=== PATIENT | male | born 1990 | race Caucasian/White ===

== ENCOUNTER → 2024-10-27 16:20 | Outpatient (REF) | payer OTHER, SELFPAY | LOC: HWRAD 16:20 | PROVIDERS: ATTENDING PHYSICIAN Physician Assistant Medical | DX: M25.521 Pain in right elbow (principal) | CPT/HCPCS: 73080 ==

== ENCOUNTER 2025-02-20 20:01 | Emergency (ER) | payer OTHER, SELFPAY ==
[2025-02-20 20:12] VITALS: BP 146/80
[2025-02-20 21:19] VITALS: BP 132/64
--- NOTE | 2025-02-20 21:44 | EDRN ---
Pt says he had hives last night and they went away. Pt was out to dinner around 1930 and noticed a few hives which caused him to have 'bad anxiety'. Pt says this has happened 7-8 times where he has a panic attack then passes out. Pt was sitting,
felt he was going to pass out so he tried to make it to the car. Pt was diaphoretic and lightheaded. says she pushed him up against a wall so he did not fall when he passed out. LOC x 1 minute. Pt feels tired now. No lightheadedness, cp,
abd pain, n/v. Pt used to have an epi pen due to hx of anaphylaxis but does not have one anymore.
[2025-02-20 21:48] LABS: % Basophils 0.9 % (0-2); % Eosinophils 3.7 % (0-6); % Immature Granulocytes 0.2 % (0-0.5); % Lymphocytes 29.1 % (20.5-51.1); % Monocytes 9.6 % (1.7-9.3); % Neutrophils 56.5 % (42.2-75.2); Absolute Basophils 0.1 10^3/uL (0-0.2); Absolute Eosinophils 0.3 10^3/uL (0-0.7); Absolute Lymphocytes 2.5 10^3/uL (1.2-3.4); Absolute Monocytes 0.8 10^3/uL (0.1-0.6); Absolute Neutrophils 4.8 10^3/uL (1.4-6.5); Hemoglobin 14.4 g/dL (13.0-18.0); Mean Corp Hgb Conc. 35.1 g/dL (33.0-37.0); Mean Corpuscular Hgb 29.6 pg (27.0-31.0); Mean Corpuscular Volume 84.2 fL (80.0-94.0); Mean Platelet Volume 8.2 fL (7.4-10.4); Nucleated Red Blood Cells % 0 % (-); Platelet Count 256 10^3/uL (130-400); Red Blood Cell Count 4.87 10^6/uL (4.70-6.10); Red Cell Dist. Width 12.5 % (11.5-14.5); White Blood Cell Count 8.5 10^3/uL (4.8-10.8)
[2025-02-20 22:00] VITALS: BP 106/56
[2025-02-20 22:17] LABS: ALT (SGPT) 18 U/L (0-50); AST (SGOT) 20 U/L (17-59); Albumin 4.1 g/dl (3.5-5.0); Alkaline Phosphatase 85 U/L (38-126); Blood Urea Nitrogen 20 mg/dl (9-20); Calcium 8.8 mg/dl (8.4-10.2); Carbon Dioxide 27 mmol/L (22-30); Chloride 106 mmol/L (98-107); Glucose 95 mg/dl (70-99); Potassium 3.5 mmol/L (3.5-5.1); Sodium 138 mmol/L (135-145); Total Bilirubin 0.3 mg/dl (0.2-1.3); Total Protein 6.5 g/dl (6.3-8.2); eGFR > 60.00
--- NOTE | 2025-02-20 22:22 | ED.GENMED ---
History of Present Illness
General
Chief Complaint: Fainting/Passed Out
Source: patient and spouse
Exam Limitations: none
Time Seen by Provider: 02/20/25 20:35
Nursing documentation reviewed up to this point in time: agreed with
History of Present Illness
History of Present Illness:
34-year-old male past medical history of asthma presenting to the emergency department today with concerns of a syncopal episode. He claims that he noted some hives on his arms and claims that he felt very anxious felt lightheaded stood up started
walking felt further lightheadedness and passed out. The was at the scene and prevented him from sustaining any trauma. He was unconscious for less than a minute and has fully come to since. No seizure-like activity he denies any chest pain
or significant palpitations or shortness of breath preceding but did have lightheadedness prior.
Past History
Past History
ED Past Medical History: Asthma
Social History
Tobacco: Non-smoker
Alcohol: None
Drug: None
Review of Systems
Review of Systems
Allergies reviewed?: Yes
All Other Systems: ROS reviewed and negative except as documented in HPI and ROS
Phy Exam
Physical Exam
Physical Exam:
GENERAL: Alert , in no apparent distress
EYE: pupils equal and reactive
NECK: Supple, no significant adenopathy.
ENT: o/p clr, mmm.
CARDIAC: Regular rate and rhythm .
LUNGS: Clear breath sounds bilaterally, no acute respiratory distress, no wheezes/rales/rhonchi
ABDOMEN: Soft, without focal tenderness, no r/g, no cvat
NEUROLOGICAL: Alert and oriented, no focal neuro deficits
SKIN: Warm and dry, skin intact.
MUSCULOSKELETAL: No edema, well perfused.
PSYCH: Normal and appropriate interaction.
Course
Orders/Labs/Results
Orders:
Orders
02/20/25 20:02
Electrocardiogram (*1) Urgent
Reason for Study: Syncope
EKG- Treatment ONCE
02/20/25 21:41
CBC/With Diff [Complete Blood Count/With Diff] Urgent
CMP [Comprehensive Metabolic Panel] Urgent
Abnormal Lab Results
02/20/25
21:41
Absolute Monos (auto) 0.8 H 10^3/uL
(0.1-0.6)
Monocytes % 9.6 H %
(1.7-9.3)
02/20/25 21:41
02/20/25 21:41
Vital Signs
Initial and Last Documented VS:
Initial Vital Signs
Temp Pulse Resp BP Pulse Ox
98.0 F 92 18 146/80 99
02/20/25 20:12 02/20/25 20:12 02/20/25 20:12 02/20/25 20:12 02/20/25 20:12
Last Documented Vital Signs
Temp Pulse Resp BP Pulse Ox
98.0 F 78 18 106/56 98
02/20/25 20:12 02/20/25 22:00 02/20/25 20:12 02/20/25 22:00 02/20/25 21:16
MDM/Problems Addressed
MDM/Problems Addressed:
34-year-old male presenting after syncopal episode. Here he has a reassuring examination normal vital signs normal labs normal EKG. Symptoms sound most consistent with vasovagal event stable for outpatient management return precautions given.
Also written for steroids due to recurring hives that he is describing. Also given an EpiPen to have available as needed. Return precautions given.
*Critical Care Note
Total Time (30-74mins, 75-104mins- exclusive of procedures): Not Applicable
ED Attending Note
-
Portions of this chart may have been created with voice recognition software.� Occasional wrong word or��sound alike� substitutions may have occurred due to the inherent limitations of voice recognition software.
Discharge Plan
Departure
Patient Disposition: Home (Routine Discharge)
Date of Disposition: 02/20/25
Time of Disposition: 22:30
Patient with high blood pressure during this ER visit?: No
Condition: Good
Covid-19: Not Applicable
Discharge Problem:
Syncope
Instructions: Syncope (Fainting) (DC)
Prescriptions:
New
prednisone 20 mg tablet
40 mg PO DAILY 5 Days Qty: 10 0RF
epinephrine [Auvi-Q] 0.3 mg/0.3 mL auto-injector
0.3 mg IM Q5-15M PRN (Reason: anaphylaxis) Qty: 2 0RF
No Action
fluticasone propionate 44 mcg/actuation Hfa Aerosol Inhaler
1 puff INHALATION DAILY
albuterol sulfate 90 mcg/actuation Hfa Aerosol Inhaler
2 inh INHALATION PRN PRN (Reason: prior to exercise)
Referrals:
UNKNOWN - PT NOT,INTERVIEWE [Family Provider]
Activity Restrictions/Additional Instructions:
You came to the emergency department today with concerns after syncopal episode. Please follow closely with the spinner frame and the primary care doctor. Return for any worsening, new or concerning symptoms.
Interventions
Interventions:
*Risk Screen - Suicide Last Done: 02/20/25 20:12
*General Assessment Last Done: 02/20/25 20:12
*Neglect/Abuse Screening Last Done: 02/20/25 21:23
*ED- Fall Risk Assessment Last Done: 02/20/25 21:23
ED- Cardiac Assessment Last Done: 02/20/25 21:47
ED- Neurological Assessment Last Done: 02/20/25 21:47
Discharge Date and Time
Print Language: ARMENIAN
== END 2025-02-20 22:41 | disposition home or self-care (01) ==
LOC: EMR 20:01
PROVIDERS: Physician Assistant; EMERGENCY PHYSICIAN Student in an Organized Health Care Education/Training Program
DX: R55 Syncope and collapse (principal); L50.9 Urticaria, unspecified; J45.909 Unspecified asthma, uncomplicated; Z88.0 Allergy status to penicillin; Z88.8 Allergy status to other drugs, medicaments and biological substances
CPT/HCPCS: 99283; 80053; 85025; 93005